=== PATIENT | female | born 1955 | race Caucasian/White ===

== ENCOUNTER → 2020-04-11 09:49 | Outpatient (CLI) | payer OTHER, SELFPAY ==
--- NOTE | 2020-04-11 10:03 | XR_ITS ---
PROCEDURE: XR FOOT LT MIN 3V CLINICAL INDICATION: LT FOOT INJURY COMPARISON: No exams were available for comparison FINDINGS: No fracture or dislocation. No lytic or blastic change. There is normal mineralization. The joint spaces are well-preserved. No significant degenerative/arthritic changes. No erosive changes evident. Other findings:None. IMPRESSION: No acute findings. Dictated by: Dr. Billy Higginbotham MD 04/11/2020 12:[address] Billy Higginbotham MD in [place] 04/11/2020 12:10
== END ==
PROVIDERS: PCP Physician Assistant; Visit Provider Physician Assistant
DX: S99.922A Unspecified injury of left foot, initial encounter (principal)
CPT/HCPCS: 73630

== ENCOUNTER → 2020-04-17 09:25 | Outpatient (CLI) | payer BC, SELFPAY ==
--- NOTE | 2020-04-17 09:28 | XR_ITS ---
PROCEDURE: XR DEXA AXIAL SKELETON CLINICAL HISTORY: POSTMENOPAUSAL COMPARISON: No exams were available for comparison FINDINGS: The Right hip BMD is 0.733 with a t-score of -1.0. The left hip BMD is 0.746 with a t-score of -0.9. The Lumbar spine BMD is 1.160 with a t-score of 1.0. IMPRESSION: Normal bone density with low fracture risk. Suggest follow-up exam in 2 years Dictated by: Yusuf Arambula MD 04/22/2020 21:49 Electronically signed by Yusuf Arambula MD in [place] 04/23/2020 07:54
== END ==
PROVIDERS: PCP Physician Assistant; Visit Provider Family Medicine
DX: Z78.0 Asymptomatic menopausal state (principal)
CPT/HCPCS: 77080

== ENCOUNTER 2020-09-12 09:05 | Emergency (ER) | payer BC, SELFPAY ==
[2020-09-12 09:22] VITALS: BP 142/72; PULSE 64; RESP 18; TEMP 36.6; O2SAT 98; BMI 34.0
--- NOTE | 2020-09-12 09:27 | HMH.EDUTC ---
[facility] [place] Disposition Clinical Impression: Encounter for laboratory testing for COVID-19 virus Allergic rhinitis Qualifiers: Allergic rhinitis trigger: unspecified Allergic rhinitis seasonality: unspecified Qualified Code(s): J30.9 - Allergic rhinitis, unspecified Disposition: Home, Self-Care Condition on Discharge: Good Instructions: Allergic Rhinitis, DI for Allergic Rhinitis, Preventing the Spread of Coronavirus Discharge Instructions Additional Instructions: *Monitor Temp, Over the counter Motrin or Tylenol as directed/as needed Tylenol every 4 hours and Motrin every 6 hours (as long as your family doctor has told you that you can take it) for fever or pain. and straight to ER if unable to lower temp less than 101.0 after medication given *Warm salt water gargles may help to soothe the throat *Throat Lozenges *Warm fluids like tea with honey may help to soothe the throat *Sleep elevated *Humidifier/Vaporizer *Flonase 2 sprays in each nostril daily but be aware that it may take 2-3 days before you notice improvement Follow up IMMEDIATELY for new or worsening symptoms or no Noticeable improvement over the next 48-72 hours. 911 for difficulty breathing or swallowing You was tested for today for COVID19 your test result should be back in the next 24-48 hours, you may call to the [facility] later today or tomorrow to see if your test results are back and the result [phone] [facility] hours are 9am-9pm You was given a handout with instructions for Self Quarantine and Self isolation for while you wait on test results and what to do if they are positive If you are positive the Health Dept will be contacting you also Referrals: Johnnie Mora MD [Primary Care Provider] - As needed Time of Disposition: 09:32 Medical Decision Making - Heron Inquiry Pt receiving controlled substance: No Heron was queried for this patient: No Vital Signs: 09/12/20 09:22 Temperature 97.8 F Temperature Source Oral Pulse Rate [Radial] 64 Respiratory Rate 18 Blood Pressure [Right Arm] 142/72 H Blood Pressure Mean [Right Arm] 95 Blood Pressure Source [Right Arm] Automatic Cuff Blood Pressure Position [Right Arm] Sitting 02 Sat by Pulse Oximetry 98 Oxygen Delivery Method Room Air Orders (Tests/Meds): ORDERS Category Date Time Status Covid-19 Nasal PCR Sendout [facility] 09/12/20 09:16 Ordered [facility] [place] HPI - General Stated complaint: cough,drainage Time Seen by Provider: 09/12/20 09:27 Mode of Arrival: Ambulatory Source of Information: Patient Limitations: No Limitations Description of Symptoms (Recalled from Triage Doc. 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 States that she has started her allergy medications and it has helped - Related Data Home Medications Medication Instructions Recorded Confirmed conjugated estrogens 1.25 mg tablet 1.25 mg PO QDAY 10/28/17 levothyroxine 125 mcg tablet PO 10/28/17 losartan 50 mg tablet 50 mg PO QDAY 10/28/17 spironolactone 25 mg/5 mL oral 25 mg PO BID 10/28/17 suspension Allergies Allergy/AdvReac Type Severity Reaction Status Date / Time Penicillins Allergy Severe Rash, SOB, Verified 03/28/18 19:03 muscle cramps Sulfa (Sulfonamide Allergy Severe Rash, Verified 03/28/18 19:03 Antibiotics) Muscle cramps, SOB - Worker's Comp Is this a Worker's Comp case?: No [facility] History
[2020-09-12 09:44] VITALS: BP 142/72; PULSE 64; RESP 18; TEMP 36.6; O2SAT 98
[2020-09-13 10:46] LABS: Covid-19 Nasal PCR Sendout Lex Not Detected
== END 2020-09-12 09:45 | disposition home or self-care (01) ==
PROVIDERS: Emergency Provider Nurse Practitioner; PCP Family Medicine
DX: J30.9 Allergic rhinitis, unspecified (principal); Z20.828 Contact with and (suspected) exposure to other viral communicable diseases
CPT/HCPCS: 99201; U0004

== ENCOUNTER → 2020-12-27 08:17 | Outpatient (CLI) | payer BC, SELFPAY ==
[2020-12-27 10:11] LABS: Alanine Aminotransferase 14 U/L (12-78); Albumin Level 4.3 g/dl (3.5-5.0); Albumin/Globulin Ratio 1.8 (1.1-1.8); Alkaline Phosphatase 69 U/L (38-126); Anion Gap 10.4 mEq/L (5-15); Aspartate Amino Transferase 27 U/L (14-36); Bilirubin,Total 0.7 mg/dl (0.2-1.3); Blood Urea Nitrogen 17 mg/dl (7-17); Calcium 9.8 mg/dl (8.4-10.2); Carbon Dioxide 27 mmol/L (22.0-30.0); Chloride 103 mmol/L (98-107); Chol/HDL Ratio 2.4 (1-3.5); Cholesterol 203 mg/dl (140-200); Estimated Glomerular Filt Rate 56 ml/min (>60); GFR (African American) 68 ML/MIN (>60); Globulin 2.4 g/dL (1.3-3.2); Glucose 105 mg/dl (74-100); HDL Cholesterol 83 mg/dl (40-60); Phosphorous 4.4 mg/dl (2.5-4.5); Potassium 4.4 mmoL/L (3.5-5.1); Sodium 136 mmol/L (136-145); Total Protein,Serum 6.7 g/dl (6.3-8.2); Triglycerides 90 mg/dl (30-150); VLDL Cholesterol 18 mg/dL (0-40)
[2020-12-27 10:22] LABS: Direct LDL Cholesterol 102.08 mg/dL (100-129)
== END ==
PROVIDERS: Visit Provider Physician Assistant
DX: I10 Essential (primary) hypertension (principal); E78.89 Other lipoprotein metabolism disorders; M79.10 Myalgia, unspecified site
CPT/HCPCS: 36415; 80053; 80061; 83735; 84100

== ENCOUNTER → 2021-04-21 12:32 | Outpatient (CLI) | payer BC, SELFPAY ==
[2021-04-21 12:56] LABS: Blood Urea Nitrogen 21 mg/dl (7-17); Estimated Glomerular Filt Rate 63 ml/min (>60); GFR (African American) 77 ML/MIN (>60)
--- NOTE | 2021-04-21 14:13 | MR_ITS ---
PROCEDURE INFORMATION: Exam: MR Left Lower Extremity Joint Without and With Contrast; Ankle Exam date and time: 04/21/2021 2:13 PM Age: 65 years old Clinical indication: Patient HX: Left heel pain since aug 2020, felt a pop on 04-17-21 when walking up steps, swelling and bruising going up back of leg. 19ml prohance injected; Additional info: Rupture of left achilles tendon TECHNIQUE: Imaging protocol: MR of the Left lower extremity without and with contrast. Exam focused on the ankle. Contrast material: PROHANCE; Contrast volume: 19 ml; Contrast route: IV; COMPARISON: CR XR FOOT LT MIN 3V 04/11/2020 10:16 AM FINDINGS: Bones and cartilage: There is no acute fracture or dislocation. No aggressive bone lesions are present. Minimal subchondral cystic changes around the third and fourth tarsometatarsal joints suggests early primary osteoarthritis (series 6/image 19). Joint spaces: Mild effusions involve the ankle and subtalar joints. LIGAMENTS: Distal tibiofibular syndesmosis: Unremarkable. No tear. Anterior talofibular ligament: The anterior talofibular ligament is thin, consistent with an age indeterminant, intermediate grade partial-thickness tear. Posterior talofibular ligament: Unremarkable. No tear. Calcaneofibular ligament: Unremarkable. No tear. Deltoid ligament complex: Unremarkable. No tear. TENDONS: Flexor tendons of foot: Mild tenosynovitis involves the flexor digitorum longus tendon. No tear. Tibialis posterior tendon: Mild tenosynovitis involves the tibialis posterior tendon. No tear. Peroneal tendons: Mild tenosynovitis involves the peroneal tendon sheath. No tear. Extensor tendons of foot: Unremarkable as visualized. Tibialis anterior tendon: Unremarkable. Achilles tendon: The Achilles tendon is ruptured. The rupture has an oblique orientation with the most distal aspect of the tear located 5.3 cm proximal to the most distal portion of the Achilles tendon insertion (series 6/image 17). The amount of gap varies by location. The majority of the Achilles tendon has an abnormal appearance suggesting the tear is superimposed on chronic severe tendinosis. The adjacent plantaris tendon is poorly delineated and may also be torn. Tarsal canal (Sinus tarsi): Unremarkable. Normal signal of the fat. Tarsal tunnel: Unremarkable. Muscles: Unremarkable. Soft tissues: Severe soft tissue edema surrounds the Achilles tendon rupture site with moderate diffuse edema of the ankle. Plantar fascia: Unremarkable. IMPRESSION: 1. Achilles tendon rupture, likely superimposed on severe chronic tendinosis. 2. Intermediate grade, partial-thickness tear of the anterior talofibular ligament, age indeterminate. 3. Mild tenosynovitis of the peroneal, tibialis posterior, and flexor digitorum longus tendons.
== END ==
PROVIDERS: PCP Family Medicine; Visit Provider Physician Assistant
DX: S86.012A Strain of left Achilles tendon, initial encounter (principal)
CPT/HCPCS: 36415; 73723; 82565; 84520; A9576

== ENCOUNTER → 2021-04-22 10:46 | Outpatient (CLI) | payer BC, SELFPAY ==
--- NOTE | 2021-04-22 10:51 | XR_ITS ---
PROCEDURE: XR ANKLE LT MIN 3V CLINICAL INDICATION: ankle pain COMPARISON: No exams were available for comparison FINDINGS: No fracture or dislocation. No lytic or blastic change. There is normal mineralization. The joint spaces are well-preserved. No significant degenerative/arthritic changes. No erosive changes evident. Other findings:None. IMPRESSION: No acute findings. Dictated by: Yusuf Arambula MD 04/22/2021 12:31 Yusuf Arambula MD in [place] 04/22/2021 12:31
== END ==
PROVIDERS: PCP Family Medicine; Visit Provider Orthopaedic Surgery
DX: S86.012A Strain of left Achilles tendon, initial encounter (principal)
CPT/HCPCS: 73610

== ENCOUNTER → 2021-05-07 11:55 | Outpatient (CLI) | payer BC, SELFPAY ==
[2021-05-07 12:26] LABS: Basophils # 0.1 K/mm3 (0-0.2); Basophils % 0.7 % (0.1-2.0); Eosinophils # 0.5 K/mm3 (0.0-0.4); Eosinophils % 4.8 % (0.1-12.0); Hematocrit 40.7 % (37.0-47.0); Hemoglobin 13.8 g/dL (12.2-16.2); Lymphocytes # 3.8 K/mm3 (0.7-4.5); Lymphocytes % 34.6 % (10-50); Mean Corpuscular HGB Conc 33.8 g/dL (31.8-35.4); Mean Corpuscular Hemoglobin 30.7 pg (27.0-31.2); Mean Corpuscular Volume 90.7 fl (81-99); Mean Platelet Volume 8.3 fl (7.4-10.4); Monocytes # 0.5 K/mm3 (0.1-1.0); Monocytes % 4.7 % (1.7-9.3); Neutrophils % 55.3 % (37.0-80.0); Platelet Count 309 K/mm3 (142-424); Red Blood Count 4.49 M/mm3 (4.20-5.40); Red Cell Distribution Width 13.7 % (11.5-17.5); White Blood Count 10.9 K/mm3 (4.8-10.8)
== END ==
PROVIDERS: Visit Provider Physician Assistant
DX: D72.829 Elevated white blood cell count, unspecified (principal)
CPT/HCPCS: 36415; 85025

== ENCOUNTER → 2021-07-22 10:28 | Outpatient (CLI) | payer BC, SELFPAY ==
--- NOTE | 2021-07-22 10:32 | XR_ITS ---
PROCEDURE: XR THORACIC SPINE 3V CLINICAL INDICATION: FAMILY HX OF ANKYLOSING SPONDYLITIS COMPARISON: CR CXR CHEST(2 VIEWS-NOT PORTABLE) from 03/07/2016 FINDINGS: Normal alignment. No acute fracture or dislocation. There is mild multilevel degenerative disc disease involving the entire thoracic spine with minimal endplate osteophytes. No evidence of ankylosis. No acute fracture or dislocation. No lytic or blastic change. IMPRESSION: Thoracic spondylosis with mild multilevel degenerative disc disease and small anterior osteophytes. No evidence of ankylosing spondylitis Dictated by: Yusuf Arambula MD 07/22/2021 11:41 Yusuf Arambula MD in [place] 07/22/2021 11:41
== END ==
PROVIDERS: PCP Family Medicine; Visit Provider Family Medicine
DX: Z82.69 Family history of other diseases of the musculoskeletal system and connective tissue (principal)
CPT/HCPCS: 72072

== ENCOUNTER → 2021-07-30 08:16 | Outpatient (CLI) | payer BC, SELFPAY ==
[2021-07-30 08:55] LABS: Hemoglobin A1C 5.6 % (4.0-6.0)
[2021-07-30 09:13] LABS: Chloride 106 mmol/L (98-107); Sodium 142 mmol/L (136-145)
[2021-07-30 09:14] LABS: Potassium 4.4 mmoL/L (3.5-5.1)
[2021-07-30 09:16] LABS: Alanine Aminotransferase 14 U/L (12-78); Albumin Level 4.2 g/dl (3.5-5.0); Albumin/Globulin Ratio 1.8 (1.1-1.8); Alkaline Phosphatase 79 U/L (38-126); Anion Gap 13.4 mEq/L (5-15); Aspartate Amino Transferase 23 U/L (14-36); Bilirubin,Total 0.4 mg/dl (0.2-1.3); Blood Urea Nitrogen 13 mg/dl (7-17); Carbon Dioxide 27 mmol/L (22.0-30.0); Cholesterol 168 mg/dl (140-200); Estimated Glomerular Filt Rate 85 ml/min (>60); GFR (African American) 102 ML/MIN (>60); Globulin 2.3 g/dL (1.3-3.2); Total Protein,Serum 6.5 g/dl (6.3-8.2); Triglycerides 62 mg/dl (30-150); VLDL Cholesterol 12 mg/dL (0-40)
[2021-07-30 09:17] LABS: Calcium 9.9 mg/dl (8.4-10.2); Chol/HDL Ratio 2.5 (1-3.5); Glucose 102 mg/dl (74-100); HDL Cholesterol 68 mg/dl (40-60)
[2021-07-30 09:28] LABS: Direct LDL Cholesterol 80.81 mg/dL (100-129)
[2021-07-30 09:31] LABS: Free T4 (Free Thyroxine) 1.52 ng/dl (0.78-2.19)
[2021-07-30 09:46] LABS: Thyroid Stimulating Hormone 1.78 uIU/mL (0.465-4.68)
== END ==
PROVIDERS: Visit Provider Family Medicine
DX: I10 Essential (primary) hypertension (principal); E78.5 Hyperlipidemia, unspecified; E03.9 Hypothyroidism, unspecified
CPT/HCPCS: 36415; 80053; 80061; 83036; 84439; 84443

== ENCOUNTER 2021-09-19 10:46 | Emergency (ER) | payer BC, SELFPAY ==
[2021-09-19 12:50] VITALS: BP 162/77; PULSE 69; RESP 20; TEMP 36.8; O2SAT 96; BMI 34.9
--- NOTE | 2021-09-19 13:15 | HMH.EDUTC ---
[facility] [place] Clinical Impression: Exposure to COVID-19 virus Sinusitis Qualifiers: Sinusitis location: unspecified location Chronicity: acute Recurrence: non-recurrent Qualified Code(s): J01.90 - Acute sinusitis, unspecified Allergic rhinitis Qualifiers: Allergic rhinitis trigger: unspecified Allergic rhinitis seasonality: seasonal Qualified Code(s): J30.2 - Other seasonal allergic rhinitis Disposition: Home, Self-Care Condition on Discharge: Good Instructions: DI for Sinusitis Additional Instructions: Drink plenty of fluids. Take tylenol or ibuprofen for pain or fever. Take the medications as directed. Follow up with your regular doctor. GO TO THE ER FOR ANY WORSENING SYMPTOMS Quarantine until you know the results of your covid-19 test. If it is positive, the health department should call you and give you further instructions about your length of Quarantine and other things. Notify your school or workplace of your results and follow their instructions regarding return to work/school. The cough medication (promethazine dm) will make you drowsy, so don't drive or operate heavy machinery after taking it. Prescriptions: Promethazine/Dextromethorphan [Promethazine-Dm Syrup] 5 ml PO Q6HP PRN #240 ml PRN Reason: Cough Transmission Status: Received by [facility] Fexofenadine HCl 180 mg PO DAILY 90 Days #90 tab Transmission Status: Received by [facility] methylPREDNISolone [Medrol] 4 mg PO DIRECTED 6 Days #21 packet Transmission Status: Received by [facility] Azithromycin [Z-Ajit 250mg Tab*] 250 mg PO UD DOSE PK #6 tab Transmission Status: Received by [facility] Referrals: Johnnie Mora MD [Primary Care Provider] - Time of Disposition: 13:35 Medical Decision Making - Medical Records Medical records reviewed: No: I reviewed the patient's medical records. - Heron Inquiry Pt receiving controlled substance: No Vital Signs: 09/19/21 12:50 09/19/21 13:36 Temperature 98.3 F 98.3 F Temperature Source Oral Pulse Rate 69 Pulse Rate [Right Brachial] 69 Respiratory Rate 20 20 Blood Pressure 162/77 H Blood Pressure [Right Arm] 162/77 H Blood Pressure Mean [Right Arm] 105 Blood Pressure Source [Right Arm] Automatic Cuff Blood Pressure Position [Right Arm] Sitting 02 Sat by Pulse Oximetry 96 Oxygen Delivery Method Room Air - Lab Data Lab results reviewed: Yes: I reviewed the patient's lab results. [facility] [place] - General Stated complaint: sinus infection symptoms Time Seen by Provider: 09/19/21 13:15 Description of Symptoms (Recalled from Triage Doc. by RN): She c/o sinus congestion for the past 4 days. - Related Data Home Medications Medication Instructions Recorded Confirmed conjugated estrogens 1.25 mg tablet 1.25 mg PO QDAY 10/28/17 04/22/21 levothyroxine 125 mcg tablet PO 10/28/17 04/22/21 losartan 50 mg tablet 50 mg PO QDAY 10/28/17 04/22/21 spironolactone 25 mg/5 mL oral 25 mg PO BID 10/28/17 04/22/21 suspension Previous Rx's Medication Instructions Recorded Azithromycin [Z-Ajit 250mg Tab*] 250 mg PO UD DOSE PK #6 tab 09/19/21 Fexofenadine HCl 180 mg PO DAILY 90 Days #90 tab 09/19/21 Promethazine/Dextromethorphan 5 ml PO Q6HP PRN #240 ml 09/19/21 [Promethazine-Dm Syrup] methylPREDNISolone [Medrol] 4 mg PO DIRECTED 6 Days #21 09/19/21 packet Allergies Allergy/AdvReac Type Severity Reaction Status Date / Time Penicillins Allergy Severe Rash, SOB, Verified 04/22/21 12:14 muscle cramps Sulfa (Sulfonamide Allergy Severe Rash, Verified 04/22/21 12:14 Antibiotics) Muscle cramps, SOB chlorhexidine Allergy Hives Verified 04/22/21 12:14 Acrylate Allergy Hives and Uncoded 04/22/21 12:[address] [facility] History - Hepatitis A Screen Attestation statement:: This patient has been screened for Hepatitis A risk factors. I have reviewed the patient's past medical history: Yes
[2021-09-19 13:36] VITALS: BP 162/77; PULSE 69; RESP 20; TEMP 36.8; O2SAT 96
== END 2021-09-19 13:40 | disposition home or self-care (01) ==
PROVIDERS: Emergency Provider Nurse Practitioner Family; PCP Family Medicine
DX: J01.90 Acute sinusitis, unspecified (principal); J30.2 Other seasonal allergic rhinitis; Z20.822 Contact with and (suspected) exposure to COVID-19; I10 Essential (primary) hypertension; E03.9 Hypothyroidism, unspecified
CPT/HCPCS: 99202; C9803; G0463; U0003; U0005

== ENCOUNTER → 2022-01-19 08:02 | Outpatient (CLI) | payer BC, SELFPAY ==
[2022-01-19 09:21] LABS: Alanine Aminotransferase 21 U/L (12-78); Albumin Level 4.4 g/dl (3.5-5.0); Albumin/Globulin Ratio 2.2 (1.1-1.8); Alkaline Phosphatase 77 U/L (38-126); Anion Gap 8.9 mEq/L (5-15); Aspartate Amino Transferase 28 U/L (14-36); Bilirubin,Total 0.6 mg/dl (0.2-1.3); Blood Urea Nitrogen 21 mg/dl (7-17); Calcium 9.7 mg/dl (8.4-10.2); Carbon Dioxide 27 mmol/L (22.0-30.0); Chloride 108 mmol/L (98-107); Chol/HDL Ratio 2.6 (1-3.5); Cholesterol 185 mg/dl (140-200); Estimated Glomerular Filt Rate 84 ml/min (>60); GFR (African American) 102 ML/MIN (>60); Glucose 96 mg/dl (74-100); HDL Cholesterol 70 mg/dl (40-60); Potassium 4.9 mmoL/L (3.5-5.1); Sodium 139 mmol/L (136-145); Total Protein,Serum 6.4 g/dl (6.3-8.2); Triglycerides 72 mg/dl (30-150); VLDL Cholesterol 14 mg/dL (0-40)
[2022-01-19 09:31] LABS: Direct LDL Cholesterol 83.59 mg/dL (100-129)
[2022-01-19 09:42] LABS: Thyroid Stimulating Hormone 1.16 uIU/mL (0.465-4.68)
[2022-01-19 09:58] LABS: Hemoglobin A1C 5.4 % (4.0-6.0)
== END ==
PROVIDERS: Visit Provider Physician Assistant
DX: I10 Essential (primary) hypertension (principal); E03.9 Hypothyroidism, unspecified; E78.5 Hyperlipidemia, unspecified; R73.09 Other abnormal glucose
CPT/HCPCS: 36415; 80053; 80061; 83036; 84439; 84443

== ENCOUNTER → 2022-02-09 12:38 | Outpatient (CLI) | payer BC, SELFPAY ==
--- NOTE | 2022-02-09 12:43 | US_ITS ---
FINAL REPORT CLINICAL HISTORY: POST MENOPAUSAL SYMPTOMS FINDINGS: Transvaginal sonographic images of the pelvis were obtained. The uterus is surgically absent. The vaginal cuff is noted. The right ovary measures 1.6 cm in length and left ovary measures 1.5 cm in length. Normal blood flow seen to the ovaries. No mass is identified. There is no evidence of free fluid. IMPRESSION: Absent uterus. Otherwise unremarkable exam. Reviewed, Interpreted and Dictated by Calvin Clark III, MD Transcribed by Lillian Aceves Authenticated by Calvin Clark III, MD on 02/09/2022 03:18:24 PM [facility]
== END ==
PROVIDERS: PCP Family Medicine; Visit Provider Family Medicine
DX: N95.9 Unspecified menopausal and perimenopausal disorder (principal)
CPT/HCPCS: 76830

== ENCOUNTER → 2022-07-13 09:46 | Outpatient (CLI) | payer BC, SELFPAY ==
[2022-07-13 11:25] LABS: Alanine Aminotransferase 16 U/L (12-78); Albumin Level 3.9 g/dl (3.5-5.0); Alkaline Phosphatase 78 U/L (38-126); Anion Gap 10.8 mEq/L (5-15); Aspartate Amino Transferase 25 U/L (14-36); Bilirubin,Total 0.3 mg/dl (0.2-1.3); Blood Urea Nitrogen 18 mg/dl (7-17); Calcium 8.9 mg/dl (8.4-10.2); Carbon Dioxide 28 mmol/L (22.0-30.0); Chloride 101 mmol/L (98-107); Chol/HDL Ratio 2.8 (1-3.5); Cholesterol 190 mg/dl (140-200); Estimated Glomerular Filt Rate 63 ml/min (>60); GFR (African American) 76 ML/MIN (>60); Glucose 96 mg/dl (74-100); HDL Cholesterol 67 mg/dl (40-60); Potassium 4.8 mmoL/L (3.5-5.1); Sodium 135 mmol/L (136-145); Total Protein,Serum 5.9 g/dl (6.3-8.2); Triglycerides 66 mg/dl (30-150); VLDL Cholesterol 13 mg/dL (0-40)
[2022-07-13 11:36] LABS: Direct LDL Cholesterol 96.16 mg/dL (100-129)
[2022-07-13 11:55] LABS: Thyroid Stimulating Hormone 4.24 uIU/mL (0.465-4.68)
== END ==
PROVIDERS: PCP Physician Assistant; Visit Provider Physician Assistant
DX: E03.9 Hypothyroidism, unspecified (principal); I10 Essential (primary) hypertension; E78.5 Hyperlipidemia, unspecified
CPT/HCPCS: 36415; 80053; 80061; 84439; 84443

== ENCOUNTER → 2022-12-25 11:56 | Outpatient (CLI) | payer MEDICARE, SELFPAY ==
[2022-12-25 13:46] LABS: Free T4 (Free Thyroxine) 1.41 ng/dl (0.78-2.19)
[2022-12-25 14:00] LABS: Thyroid Stimulating Hormone 1.61 uIU/mL (0.465-4.68)
== END ==
PROVIDERS: PCP Physician Assistant; Visit Provider Physician Assistant
DX: E03.9 Hypothyroidism, unspecified (principal)
CPT/HCPCS: 36415; 84439; 84443

== ENCOUNTER → 2022-12-31 10:07 | Outpatient (CLI) | payer MEDICARE, SELFPAY ==
--- NOTE | 2022-12-31 10:14 | XR_ITS ---
FINAL REPORT CLINICAL HISTORY: RIGHT SIDED ABD PAIN FINDINGS: Flat and upright views of the abdomen were obtained. There is a nonobstructive bowel gas pattern. There is a moderate amount of retained stool. There is no free air. There is no abnormal calcification. There is leftward curvature in the lumbar spine. There are postoperative changes in the right upper quadrant. IMPRESSION: No acute abnormality. Moderate amount of retained stool. Reviewed, Interpreted and Dictated by Calvin Clark III, MD Transcribed by Lillian Aceves Authenticated and [facility]
== END ==
PROVIDERS: PCP Physician Assistant; Visit Provider Physician Assistant
DX: R10.9 Unspecified abdominal pain (principal)
CPT/HCPCS: 74019

== ENCOUNTER → 2023-01-14 08:51 | Outpatient (CLI) | payer MEDICARE, SELFPAY ==
--- NOTE | 2023-01-14 08:54 | XR_ITS ---
FINAL REPORT TECHNIQUE: Bone densitometry calculations of the lumbar spine and hip were obtained. CLINICAL HISTORY: post menopausal COMPARISON: 04/17/2020 FINDINGS: DEXA BONE DENSITY AXIAL SKELETON Using L1-4, the bone mineral density of the spine is 1.241 g/cm2, corresponding to T-score of 1.8. Note these values may be falsely elevated secondary to hypertrophic changes. Previously measured 1.160 g/cm2, corresponding to T-score of 1.0. Using the left hip, the bone mineral density of the femoral neck is 0.765 g/cm2, corresponding to a T-score of -0.8. Previously measured 0.746 g/cm2, corresponding to T-score of -0.9. Using the right hip, the bone mineral density of the femoral neck is 0.800 g/cm2, corresponding to a T-score of -0.4. Previously measured 0.733 g/cm2, corresponding to T-score of -1.0. NOTE: T-score: Standard deviation compared with peak bone mass of young adult mean. *Following the recommendations of the International Society of Bone densitometry, classification of hip BMD is based on the lower of two T-scores; total hip or femoral neck. IMPRESSION: Normal bone mineral density of the lumbar spine and hips. Please note values for lumbar spine may be falsely elevated secondary to hypertrophic change. Reviewed, Interpreted and Dictated by Howard Ramirez MD Transcribed by Lillian Aceves Authenticated and [facility][1]
== END ==
PROVIDERS: PCP Physician Assistant; Visit Provider Physician Assistant
DX: Z78.0 Asymptomatic menopausal state (principal)
CPT/HCPCS: 77080

== ENCOUNTER → 2023-05-06 14:51 | Outpatient (CLI) | payer MEDICARE, SELFPAY ==
[2023-05-06 16:24] LABS: Alanine Aminotransferase 23 U/L (12-78); Albumin Level 4.3 g/dl (3.5-5.0); Alkaline Phosphatase 71 U/L (38-126); Anion Gap 13.9 mEq/L (5-15); Aspartate Amino Transferase 34 U/L (14-36); Bilirubin,Total 0.6 mg/dl (0.2-1.3); Blood Urea Nitrogen 18 mg/dl (7-17); Calcium 9.3 mg/dl (8.4-10.2); Carbon Dioxide 23 mmol/L (22.0-30.0); Chloride 107 mmol/L (98-107); Estimated Glomerular Filt Rate 72 ml/min (>60); GFR (African American) 87 ML/MIN (>60); Globulin 2.2 g/dL (1.3-3.2); Glucose 111 mg/dl (74-100); Potassium 3.9 mmoL/L (3.5-5.1); Sodium 140 mmol/L (136-145); Total Protein,Serum 6.5 g/dl (6.3-8.2)
[2023-05-06 16:35] LABS: Basophils % 0.2 % (0.1-2.0); Eosinophils # 0.4 K/mm3 (0.0-0.4); Eosinophils % 4.2 % (0.1-12.0); Hemoglobin 15.5 g/dL (12.2-16.2); Lymphocytes # 2.6 K/mm3 (0.7-4.5); Lymphocytes % 31.3 % (10-50); Mean Corpuscular HGB Conc 31.6 g/dL (31.8-35.4); Mean Corpuscular Hemoglobin 29.7 pg (27.0-31.2); Mean Corpuscular Volume 94.3 fl (81-99); Mean Platelet Volume 9.8 fl (7.4-10.4); Monocytes # 0.5 K/mm3 (0.1-1.0); Monocytes % 5.6 % (1.7-9.3); Neutrophils # 4.9 K/mm3 (1.8-7.8); Neutrophils % 58.6 % (37.0-80.0); Platelet Count 188 K/mm3 (142-424); Red Cell Distribution Width 13.3 % (11.5-17.5); White Blood Count 8.4 K/mm3 (4.8-10.8)
[2023-05-06 16:55] LABS: Thyroid Stimulating Hormone 2.27 uIU/mL (0.465-4.68)
[2023-05-06 17:14] LABS: Vitamin B12 283 pg/mL (239-931)
[2023-05-06 21:51] LABS: 25-OH Vitamin D, Total 30.4 ng/mL (30-100)
[2023-05-06 22:33] LABS: Free T4 (Free Thyroxine) 1.66 ng/dl (0.78-2.19)
== END ==
PROVIDERS: PCP Physician Assistant; Visit Provider Physician Assistant
DX: E03.9 Hypothyroidism, unspecified (principal); I10 Essential (primary) hypertension; R53.83 Other fatigue; E53.8 Deficiency of other specified B group vitamins; E66.9 Obesity, unspecified; Z68.33 Body mass index [BMI] 33.0-33.9, adult
CPT/HCPCS: 36415; 80053; 82306; 82607; 84439; 84443; 85025

== ENCOUNTER 2023-07-03 10:17 | Emergency (ER) | payer MEDICARE, SELFPAY ==
[2023-07-03 10:20] VITALS: BP 162/59; PULSE 72; RESP 18; TEMP 37.1; O2SAT 99; BMI 35.3
--- NOTE | 2023-07-03 10:32 | EXP.UTC ---
Discharge Plan Disposition Patient Disposition: Home, Self-Care Condition: Good Prescriptions Prescriptions: New cyclobenzaprine 10 mg Tablet 10 mg PO BID PRN (Reason: Muscle Spasm) Qty: 20 0RF methylprednisolone 4 mg Tablets,Dose Pack 4 mg PO DIRECTED Qty: 21 0RF No Action losartan 50 mg tablet 50 mg PO QDAY levothyroxine [Synthroid] 125 mcg tablet PO conjugated estrogens [Premarin] 1.25 mg tablet 1.25 mg PO QDAY spironolactone 25 mg/5 mL suspension 25 mg PO BID promethazine-DM 120 ML syrup 5 ml PO Q6HP PRN (Reason: Cough) Qty: 240 0RF azithromycin 250 MG tablet 250 mg PO UD DOSE PK Qty: 6 0RF Rx Instructions: Take two (2) tablets today, then one (1) tablet days #2 thru #5 methylprednisolone 4 MG tablets,dose pack 4 mg PO DIRECTED 6 Days Qty: 21 0RF fexofenadine 180 MG tablet 180 mg PO DAILY 90 Days Qty: 90 1RF Referrals Follow up/Referrals: Sigrid Lombardi PA [Primary Care Provider] - See instructions Activity Restrictions/Add. Instructions Additional Instructions/Restrictions: Go home and rest. It would be best if you rested tomorrow too. No heavy lifting. No twisting. Take the oral medications as directed. The muscle relaxer (cyclobenzaprine--Flexeril) will make you drowsy, so don't drive or operate heavy machinery after taking it. Don't start the oral steroids (medrol dose pack) until tomorrow, since you had the shots in here today. Follow up with your regular doctor. GO TO THE ER FOR ANY WORSENING SYMPTOMS OR CONCERN, ESPECIALLY BOWEL OR BLADDER ISSUES, SADDLE AREA NUMBNESS, FEVER, ETC Clinical Impressions Clinical Impression: Low back pain with sciatica Instructions Patient Instructions: Low Back Pain, DI for Low Back Pain, DI for Sciatica, Ketorolac Injection, Dexamethasone Injection Discharge ED Provider: Jimmy Howard [facility] General Stated complaint: lower back pain, shooting down leg Time Seen by Provider: 07/03/23 10:32 History of Present Illness Provider Complaint: She states that for the past 1 week she has had low back pain that radiates down her right hip. Related Data Home Medications Medication Instructions Recorded Confirmed conjugated estrogens 1.25 mg 1.25 mg PO QDAY 10/28/17 04/22/21 tablet (Premarin) levothyroxine 125 mcg tablet PO 10/28/17 04/22/21 (Synthroid) losartan 50 mg tablet 50 mg PO QDAY 10/28/17 04/22/21 spironolactone 25 mg/5 mL oral 25 mg PO BID 10/28/17 04/22/21 suspension Previous Rx's Medication Instructions Recorded azithromycin 250 mg tablet 250 mg PO UD DOSE PK #6 tabs 09/19/21 fexofenadine 180 mg tablet 180 mg PO DAILY 90 days #90 tabs 09/19/21 methylprednisolone 4 mg tablets in 4 mg PO DIRECTED 6 days #21 09/19/21 a dose pack packets promethazine-DM 6.25 mg-15 mg/5 mL 5 ml PO Q6HP PRN Cough #240 mL 09/19/21 oral syrup cyclobenzaprine 10 mg tablet 10 mg PO BID PRN Muscle Spasm #20 07/03/23 tabs methylprednisolone 4 mg tablets in 4 mg PO DIRECTED #21 tabs 07/03/23 a dose pack Allergies Allergy/AdvReac Type Severity Reaction Status Date / Time Penicillins Allergy Severe Rash, SOB, Verified 07/03/23 10:39 muscle cramps Sulfa (Sulfonamide Allergy Severe Rash, Verified 07/03/23 10:39 Antibiotics) Muscle cramps, SOB chlorhexidine Allergy Hives Verified 07/03/23 10:39 Acrylate Allergy Hives and Uncoded 04/22/21 12:14 blisters. [facility] Disclaimer: The information contained in this section may have been updated after the patient was seen, as this information can be updated by other users. Social History Smoking Status: Former smoker alcohol intake: never substance use type: denies use current occupational status: employed Travel in the last 8 weeks: None ROS Obtained: Yes All systems reviewed & no additional complaints except as docume
[2023-07-03 10:51] LABS: Microscopic, Urine URINE MICROSCOPIC (MICROSCOPIC)
[2023-07-03 10:52] LABS: Appearance,Urine CLEAR (Clear); Bilirubin,Urine Negative (Negative); Blood, Urine Negative (Negative); Color,Urine YELLOW (Yellow); Glucose,Urine (UA) Negative (Negative); Ketones,Urine Negative (Negative); Leukocyte Esterase,Urine Negative (Negative); Nitrate,Urine Negative (Negative); Protein,Urine Negative (Negative); Specific Gravity, Urine 1.025 (1.005-1.030); Urobilinogen,Urine 0.2 EU/dl (0.2)
[2023-07-03 11:18] LABS: Bacteria,Urine 1+ /lpf
[2023-07-03 12:07] VITALS: BP 161/59; PULSE 72; RESP 18; TEMP 37.1; O2SAT 99
== END 2023-07-03 12:07 | disposition home or self-care (01) ==
PROVIDERS: Emergency Provider Nurse Practitioner Family; PCP Physician Assistant
DX: M54.41 Lumbago with sciatica, right side (principal); Z87.891 Personal history of nicotine dependence; N39.0 Urinary tract infection, site not specified; B96.89 Other specified bacterial agents as the cause of diseases classified elsewhere
CPT/HCPCS: 81001; 87086; 96372; 99212; 99214; G0463

== ENCOUNTER → 2023-07-07 10:21 | Outpatient (CLI) | payer MEDICARE, SELFPAY ==
--- NOTE | 2023-07-07 10:25 | XR_ITS ---
FINAL REPORT CLINICAL HISTORY: RIGHT HIP PAIN COMPARISON: None FINDINGS: RIGHT HIP 3 views of the right hip including an AP view of the pelvis demonstrate no acute fracture or dislocation. Status post right hip arthroplasty. The joint spaces appear normal. The visualized bony structures are well aligned. No soft tissue abnormality is seen. IMPRESSION: No acute bony abnormality. Reviewed, Interpreted and Dictated by Calvin Clark III, MD Transcribed by Mi Hunter Authenticated and [facility]
== END ==
PROVIDERS: PCP Physician Assistant; Visit Provider Physician Assistant
DX: M25.551 Pain in right hip (principal)
CPT/HCPCS: 73502

== ENCOUNTER 2023-11-05 11:21 | Emergency (ER) | payer MEDICARE, SELFPAY ==
[2023-11-05 11:35] VITALS: BP 123/65; PULSE 85; RESP 21; TEMP 36.6; O2SAT 96; BMI 34.1
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
[2023-11-05 11:53] VITALS: BP 123/65; PULSE 85; RESP 21; TEMP 36.6; O2SAT 96
[2023-11-05] MEDS: TET/DIPHTH/PERT-ADULT 0.5ML SYRINGE 0.5 ML IM (12:35)
== END 2023-11-05 12:50 | disposition home or self-care (01) ==
PROVIDERS: Emergency Provider Nurse Practitioner Family; PCP Physician Assistant
DX: T23.201A Burn of second degree of right hand, unspecified site, initial encounter (principal); Z23 Encounter for immunization; X15.0XXA Contact with hot stove (kitchen), initial encounter
CPT/HCPCS: 90471; 90715; 99212; 99214; G0463

== ENCOUNTER 2024-04-28 11:43 | Outpatient (CLI) | payer MEDICARE, SELFPAY ==
--- NOTE | 2024-04-28 | XR_ITS ---
FINAL REPORT CLINICAL HISTORY: fall FINDINGS: THORACIC SPINE Three views demonstrate no acute fracture. There are [id number] degenerative changes of the thoracic spine with mild rightward curvature. There is no malalignment. IMPRESSION: No acute process. Reviewed, Interpreted and Dictated by Calvin Clark III, MD Transcribed by Kiana Camacho Authenticated and [facility]
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
== END 2024-04-28 23:59 | disposition home or self-care (01) ==
PROVIDERS: PCP Physician Assistant; Visit Provider Physician Assistant
DX: R07.81 Pleurodynia (principal); S39.92XA Unspecified injury of lower back, initial encounter
CPT/HCPCS: 71101; 72072

== ENCOUNTER 2024-10-19 10:36 | Emergency (ER) | payer MEDICARE, SELFPAY ==
[2024-10-19 11:10] VITALS: BP 142/72; PULSE 70; RESP 18; TEMP 36.8; O2SAT 98; BMI 38.6
--- NOTE | 2024-10-19 11:24 | ED_ITS ---
Discharge Plan Disposition Patient Disposition: Home, Self-Care Condition: Good Prescriptions Prescriptions: New valacyclovir 1 gram tablet 1,000 mg PO Q8H 7 Days Qty: 21 0RF azithromycin [Zithromax Z-Ajit] 250 mg tablet See Rx Instructions .ROUTE .COMPLEX 5 Days Qty: 6 0RF Rx Instructions: For 250 mg dose pack: take 500 mg today (day 1), then 250 mg for 4 days (days 2-5) methylprednisolone [Medrol (Ajit)] 4 mg tablets,dose pack See Rx Instructions .Route .COMPLEX 6 Days Qty: 21 0RF Rx Instructions: taper pack; No Action losartan 50 mg tablet 50 mg PO QDAY levothyroxine [Synthroid] 125 mcg tablet 125 mcg PO DAILY spironolactone 25 mg tablet 25 mg PO DAILY estradiol 1.25 mg/1.25 gram (0.1 %) gel in packet 1.25 mg topical DAILY Referrals Follow up/Referrals: Johnnie Mora MD [Primary Care Provider] - See instructions Activity Restrictions/Add. Instructions Additional Instructions/Restrictions: Take medication as prescribed Follow up with your Family Doctor if needed Straight to ER if any life threatening symptoms Clinical Impressions Clinical Impression: Sinusitis, Shingles Instructions Patient Instructions: DI for Sinusitis, DI for Shingles Print Language Print Language: Telugu Discharge ED Provider[place] Mcke[place] [facility] [place] Stated complaint: rash on hip Mode of Arrival: Ambulatory Source of Information: Patient Limitations: No Limitations Time Seen by Provider: 10/19/24 11:24 Description of Symptoms (Recalled from Triage Doc. by RN): PATIENT C/O BURNING RASH TO RIGHT HIP AND SINUS PAIN/PRESSURE HEENT Symptoms (Recalled from RN notes): Yes Resp Symptoms (Recalled from RN notes): No Skin Symptoms (Recalled from RN notes): Yes MS Symptoms (Recalled from RN notes): No Functional Status (Recalled from RN notes): WNL History of Present Illness Provider Complaint: Patient states that she has a rash on her left hip area that bernstein and itches States she has had shingles before and it does feel like it did then but looks different States that she is also having sinus pain and pressure and thinks she has a sinus infection Related Data Home Medications ?Medication ?Instructions ?Recorded ?Confirmed levothyroxine 125 mcg tablet 125 mcg PO DAILY 10/28/17 10/19/24 (Synthroid) losartan 50 mg tablet 50 mg PO QDAY 10/28/17 10/19/24 estradiol 1.25 mg/1.25 gram (0.1 1.25 mg topical DAILY 10/19/24 10/19/24 %) transdermal gel packet spironolactone 25 mg tablet 25 mg PO DAILY 10/19/24 10/19/24 Previous Rx's ?Medication ?Instructions ?Recorded azithromycin 250 mg tablet See Rx Instructions PO .COMPLEX 5 10/19/24 (Zithromax Z-Ajit) days #6 tabs methylprednisolone 4 mg tablets in See Rx Instructions .Route 10/19/24 a dose pack (Medrol (Ajit)) .COMPLEX 6 days #21 tabs valacyclovir 1 gram tablet 1,000 mg PO Q8H 7 days #21 tabs 10/19/24 Allergies Allergy/AdvReac Type Severity Reaction Status Date / Time Penicillins Allergy Severe Rash, SOB, Verified 07/03/23 10:39 muscle cramps Sulfa (Sulfonamide Allergy Severe Rash, Verified 07/03/23 10:39 Antibiotics) Muscle cramps, SOB chlorhexidine Allergy Hives Verified 07/03/23 10:39 Acrylate Allergy Hives and Uncoded 04/22/21 12:14 blisters. Worker's Comp Is this a Worker's Comp case?: No [facility] Disclaimer: The information contained in this section may have been updated after the patient was seen, as this information can be updated by other users. Social History Smoking Status: Former smoker alcohol intake: never substance use type: denies use current occupational status: employed Travel in the last 8 weeks: None Have you lived/traveled outside [place] in past 30 days?: No Contact w/someone who lives/traveled outside [place] past 30 days?: No Exposure to someone with infectious disease in past 14 days?: No Do you have a fever (greater than 100.4 F or 38 C)?: No Have you tested positive for COVID-19: No Exposed to someone with COVID-19 in past 14 days?: No Do you have a sore throat?: No Do you have a cough?: Yes Do you have any weakness?: No Do you have any diarrhea?: No Are you experiencing any unusual bleeding?: No Do you have any muscle aches/pain?: No Do you have any abdominal pain?: No Are you experiencing loss of taste or smell?: No ROS Obtained: Yes All systems reviewed & no additional complaints except as documented and Yes Systems reviewed as appropriate & no additional complaints except as documented Constitutional Constitutional: Reports system reviewed and no additional complaints, except as documented and Reports as per HPI Eyes Eyes: Reports system reviewed and no additional complaints, except as documented and Reports as per HPI ENT Ears, Nose, Mouth, and Throat: Reports system reviewed and no additional complaints, except as documented, Reports as per HPI, Reports sinus pain and Reports sinus pressure Cardiovascular Cardiovascular: Reports system reviewed and no additional complaints, except as documented and Reports as per HPI Respiratory Respiratory: Reports system reviewed and no additional complaints, except as documented and Reports as per HPI Gastrointestinal Gastrointestingal: Reports system reviewed and no additional complaints, except as documented and as per HPI Integumentary/Breasts Skin/Breast: Reports system reviewed and no additional complaints, except as documented, Reports as per HPI and Reports rash Physical Exam General General appearance: alert and in no apparent distress ENT ENT exam: Present mucous membranes moist Expanded ENT Exam Nose exam: Present sinus tenderness Throat exam: Present other (PND noted) Respiratory Respiratory exam: Present normal lung sounds bilaterally; Absent respiratory distress or wheezes Cardiovascular Cardiovascular exam: Present regular rate, normal rhythm and normal heart sounds Neurological Exam Neurological exam: Present alert, oriented X3 and normal gait Skin Skin exam: Present rash (red blister like rash on right hip appears like shingles) Medical Decision Making Medical Records Screening: Per USPSTF and CDC recommendations, given the prevalence of disease in our region, it is our hospital?s policy to screen for HIV and viral Hepatitis for all patients aged 18 and over and those with ongoing risk factors. Heron Inquiry Pt receiving controlled substance: No Heron was queried for this patient: No Vital Signs: 10/19/24 11:10 Temperature 98.3 F Temperature Source Oral Pulse Rate [Left Brachial] 70 Respiratory Rate 18 Blood Pressure [Left Arm] 142/72 H Blood Pressure Mean [Left Arm] 95 Blood Pressure Source [Left Arm] Automatic Cuff Blood Pressure Position [Left Arm] Sitting 02 Sat by Pulse Oximetry 98 Oxygen Delivery Method Room Air
[2024-10-19 11:40] VITALS: BP 142/72; PULSE 70; RESP 18; TEMP 36.8; O2SAT 98
== END 2024-10-19 11:44 | disposition home or self-care (01) ==
PROVIDERS: Emergency Provider Nurse Practitioner; PCP Family Medicine
DX: B02.9 Zoster without complications (principal); J32.9 Chronic sinusitis, unspecified; R21 Rash and other nonspecific skin eruption; J34.89 Other specified disorders of nose and nasal sinuses
CPT/HCPCS: 99212; G0381

== ENCOUNTER 2025-01-25 13:45 | Outpatient (CLI) | payer MEDICARE, SELFPAY ==
--- NOTE | 2025-01-25 13:48 | CT_ITS ---
FINAL REPORT TECHNIQUE: Thin section axial CT images of the facial bones and sinuses were obtained without contrast. Coronal and sagittal reformatted images were also obtained. This study was performed with techniques to keep radiation doses as low as reasonably achievable, (ALARA). Individualized dose reduction techniques using automated exposure control or adjustment of mA and/or kV according to the patient's size were employed. CLINICAL HISTORY: CHRONIC SINUSITIS COMPARISON: None FINDINGS: CT SINUS: There is mucosal thickening in the left maxillary sinus up to 6 mm in thickness. The remainder of the paranasal sinuses are clear. No fluid levels are identified. The ostiomeatal units have an unremarkable appearance. The nasal septum is not significantly deviated. No fracture or acute bony abnormality is identified. The mastoid air cells are clear. IMPRESSION: Left maxillary mucoperiosteal thickening as described. Otherwise, unremarkable CT of the sinuses. Reviewed, Interpreted and Dictated by Johnnie Castillo MD Transcribed by Keeley Montalvo Authenticated and [facility]
== END 2025-01-25 23:59 | disposition home or self-care (01) ==
LOC: RAD 13:46
PROVIDERS: PCP Family Medicine; Visit Provider Family Medicine
DX: J32.9 Chronic sinusitis, unspecified (principal)
CPT/HCPCS: 70486

== ENCOUNTER 2025-02-03 09:57 | Outpatient (CLI) | payer MEDICARE, SELFPAY ==
[2025-02-03 10:27] LABS: Basophils # 0.1 K/mm3 (0-0.2); Basophils % 0.5 % (0.1-2.0); Eosinophils # 0.3 K/mm3 (0.0-0.4); Eosinophils % 2.6 % (0.1-12.0); Hematocrit 42.7 % (37.0-47.0); Hemoglobin 14.1 g/dL (12.2-16.2); Lymphocytes % 27.2 % (10-50); Mean Corpuscular Hemoglobin 31.9 pg (27.0-31.2); Mean Corpuscular Volume 96.6 fl (81-99); Mean Platelet Volume 10.9 fl (7.4-10.4); Monocytes # 0.8 K/mm3 (0.1-1.0); Monocytes % 7.1 % (1.7-9.3); Neutrophils # 6.9 K/mm3 (1.8-7.8); Neutrophils % 62.1 % (37.0-80.0); Nucleated Red Blood Cells # 0 10^3/uL; Nucleated Red Blood Cells % 0 %; Platelet Count 256 K/mm3 (142-424); Red Blood Count 4.42 M/mm3 (4.20-5.40); Red Cell Distribution Width-SD 46.5 fL; White Blood Count 11.1 K/mm3 (4.8-10.8)
== END 2025-02-03 23:59 | disposition home or self-care (01) ==
LOC: LAB 09:58
PROVIDERS: PCP Family Medicine; Visit Provider Family Medicine
DX: J32.9 Chronic sinusitis, unspecified (principal); Z87.891 Personal history of nicotine dependence
CPT/HCPCS: 36415; 85025